=== PATIENT | male | born 1990 | race Caucasian/White ===

== ENCOUNTER → 2021-07-01 | Outpatient (CLI) | payer BC, OTHER | LOC: HYPER 05:56 | PROVIDERS: ATTEND Emergency Medicine | DX: K61.1 Rectal abscess (principal); E44.0 Moderate protein-calorie malnutrition; F10.280 Alcohol dependence with alcohol-induced anxiety disorder; F41.9 Anxiety disorder, unspecified; F17.200 Nicotine dependence, unspecified, uncomplicated ==